=== PATIENT | female | born 1960 | race Two or more races ===

== ENCOUNTER 2016-05-21 17:59 | Emergency (ER) | payer MEDICAID ==
[~2016-05-21] VITALS: Ht 162.6 cm; Wt 72.6 kg
[~2016-05-21 17:59] MED LIST: HYDR-2601 PO; HYDR12.56 PO; LOSA50TA6 PO
[2016-05-21] MEDS ORDERED: SODIUM CHLORIDE 0.9% 1,000 ML IVB ONE (18:40)
[2016-05-21] MEDS ORDERED: ASPirin 81 mg TAB PO ONE (18:45)
[2016-05-21] MEDS ORDERED: LORazepam 2MG/ML-1ML VIAL IV ONE (18:45)
[2016-05-21 19:48] LABS: Basophils # (auto) 0 uL; Basophils % (auto) 0.3 % (0.0-2.0); Eosinophils # (auto) 0 uL; Eosinophils % (auto) 0.1 % (0.0-7.0); Hematocrit 40.7 % (36.0-46.0); Hemoglobin 13.2 g/dL (12.2-16.2); Lymphocytes # (auto) 2.1 uL; Lymphocytes % (auto) 33.9 % (10.0-50.0); Mean Corpuscular Hemoglobin 27.9 pg (28.0-32.0); Mean Corpuscular Hgb Conc. 32.3 g/dL (32.0-36.0); Mean Corpuscular Volume 86.3 fL (80.0-100.0); Mean Platelet Volume 9.1 fL (7.4-10.4); Monocytes # (auto) 0.1 uL; Monocytes % (auto) 1.8 % (0.0-12.0); Neutrophils # (auto) 3.9 uL; Neutrophils % (auto) 63.9 % (37.0-80.0); Platelet Count (auto) 265 10^3/uL (140-450); Red Cell Distribution Width 17.9 % (11.6-16.0); White Blood Cell 6.1 10^3/uL (4.4-10.8)
[2016-05-21 20:03] LABS: Albumin 3.9 g/dL (3.4-5.0); BUN/Creatinine Ratio 17.6; Calcium 8.5 mg/dL (8.5-10.1); Magnesium 2.2 mg/dL (1.6-2.6); Potassium 3.9 mmol/L (3.5-5.1)
[2016-05-21 20:06] LABS: Bilirubin, Total 0.4 mg/dL (0.2-1.0); Total Protein 7.8 g/dL (6.4-8.2)
[2016-05-21 22:45] VITALS: BP 118/64
== END 2016-05-21 22:56 | disposition home or self-care (01) ==
LOC: EDBD 17:59 → ER 17:59
DX: R07.89 Other chest pain (principal); F10.129 Alcohol abuse with intoxication, unspecified; I10 Essential (primary) hypertension; E78.5 Hyperlipidemia, unspecified; Z88.8 Allergy status to other drugs, medicaments and biological substances
CPT/HCPCS: 36415; 71010; 80053; 80320; 83735; 84484; 85025; 85049; 93005; 94761; 96361; 96374; 99285; J2060; J7030

== ENCOUNTER 2017-09-19 19:53 | Inpatient (IN) | payer MEDICAID ==
[~2017-09-19] VITALS: Ht 165.1 cm; Wt 77.4 kg
[2017-09-19] MEDS ORDERED: ONDANSETRON HCL 4 MG/2 ML VIAL IV ONE (20:15)
[2017-09-19] MEDS ORDERED: NALBUPHINE HCL 10 MG/1ml INJECTION IV ONE ×2 (20:15→22:00)
[2017-09-19 20:40] LABS: Basophils # (auto) 0 uL; Basophils % (auto) 0.3 % (0.0-2.0); Eosinophils # (auto) 0 uL; Eosinophils % (auto) 0.4 % (0.0-7.0); Hematocrit 37.3 % (36.0-46.0); Hemoglobin 12.4 g/dL (12.2-16.2); Lymphocytes # (auto) 1.2 uL; Lymphocytes % (auto) 22.3 % (10.0-50.0); Mean Corpuscular Hemoglobin 31.9 pg (28.0-32.0); Mean Corpuscular Hgb Conc. 33.3 g/dL (32.0-36.0); Mean Corpuscular Volume 95.7 fL (80.0-100.0); Monocytes # (auto) 0.2 uL; Monocytes % (auto) 4.4 % (0.0-12.0); Neutrophils # (auto) 4.1 uL; Neutrophils % (auto) 72.6 % (37.0-80.0); Nucleated Red Blood Cells % 0.1 %; Platelet Count (auto) 239 10^3/uL (140-450); Red Cell Distribution Width 15.9 % (11.8-14.3); White Blood Cell 5.6 10^3/uL (4.4-10.8)
[2017-09-19 20:54] LABS: INR 0.9 (0.9-1.15); Partial Thromboplastin Time 24.2 sec (23.78-33.04); Prothrombin Time 9.7 sec (9.27-12.13)
[2017-09-19 20:59] LABS: Alanine Aminotransferase 32 U/L (13-56); Alkaline Phosphatase 81 U/L (45-117); Amylase 101 U/L (25-115); Anion Gap 14 (5-15); Aspartate Aminotransferase 20 U/L (15-37); BUN/Creatinine Ratio 27.1; Bilirubin, Total 0.4 mg/dL (0.2-1.0); Blood Urea Nitrogen 23 mg/dL (7-18); Calcium 8.9 mg/dL (8.5-10.1); Carbon Dioxide 18 mmol/L (21-32); Chloride 113 mmol/L (98-107); GFR African American 89 mL/min; GFR Non-African American 73 mL/min; Glucose 57 mg/dL (74-106); Lipase 299 U/L (73-393); Potassium 3.8 mmol/L (3.5-5.1); Sodium 145 mmol/L (136-145); Total Protein 7.9 g/dL (6.4-8.2)
[2017-09-19] MEDS ORDERED: SODIUM CHLORIDE 0.9% 1,000 ML IV ONE (22:00)
[2017-09-19] MEDS ORDERED: DEXTROSE 50% SYRINGE 50 ML IV ONE (22:05)
[2017-09-19] MEDS ORDERED: DEXTROSE (50%) 50ML SYRG IV ONE (22:15)
[2017-09-19] MEDS ORDERED: MVI in SODIUM CHLORIDE 0.9% 1,010 ML ONE (22:20)
[2017-09-19] MEDS: THIAMINE INJ 100 MG, MULTIPLE VITAMIN 10 ML, FOLIC ACID 1 MG, MAGNESIUM SULF SDV 50% 8 ... IV SCH ×5 (23:14)
[2017-09-20] MEDS ORDERED: ONDANSETRON HCL 4 MG/2 ML VIAL IV ONE (00:15)
[2017-09-20 01:56] LABS: Urine Bacteria NONE SEEN /hpf (None Seen); Urine Blood Negative /uL (Negative); Urine Hyaline Cast FEW /lpf (0 - 2); Urine Mucus FEW (None Seen); Urine Specific Gravity 1.024 (1.001-1.035); Urine WBC 11 /hpf (0 - 5)
[2017-09-20 02:09] LABS: Amphetamine Screen, Urine NEGATIVE (NEGATIVE); Barbiturate Scree,Urine NEGATIVE (NEGATIVE); Benzodiazephine Screen, Urine NEGATIVE (NEGATIVE); Cannabinoid Screen, Urine NEGATIVE (NEGATIVE); Cocaine Screen, Urine NEGATIVE (NEGATIVE); Opiate Scree,Urine NEGATIVE (NEGATIVE); Phencyclidine Screen, Urine NEGATIVE (NEGATIVE)
[2017-09-20] MEDS ORDERED: HYDROcodone-ACET 5/325MG TAB PO ONE (03:15)
[2017-09-20] MEDS ORDERED: TEMAZEPAM 15 MG CAP PO PRN (05:45)
[2017-09-20] MEDS ORDERED: ACETAMINOPHEN 325 MG TAB PO PRN (05:45)
[2017-09-20] MEDS ORDERED: MORPHINE SULFATE 4 MG/ML SYR/VIAL IV PRN (05:45)
[2017-09-20] MEDS ORDERED: NITROGLYCERIN 0.4 MG SL TAB SL PRN (05:45)
[2017-09-20 06:42] LABS: Hematocrit 33.7 % (36.0-46.0); Hemoglobin 11.3 g/dL (12.2-16.2)
[2017-09-20] MEDS: ONDANSETRON HCL 4 MG/2 ML VIAL IV PRN ×3 (07:06→19:55)
[2017-09-20] MEDS: HYDROcodone-ACET 5/325MG TAB PO PRN ×2 (07:56→14:11)
[2017-09-20 09:55] VITALS: BP 145/86
[2017-09-20] MEDS ORDERED: PANTOPRAZOLE 40 MG/10 ML VIAL IV SCH (10:00)
[2017-09-20] MEDS: HCTZ 25 MG TAB PO SCH (11:01)
[2017-09-20] MEDS: LOSARTAN POTASSIUM 50 MG TAB PO SCH (11:01)
[2017-09-20] MEDS ORDERED: THIAMINE INJ 100 MG, MULTIPLE VITAMIN 10 ML, FOLIC ACID 1 MG, MAGNESIUM SULF SDV 50% 8 ... IV SCH ×5 (12:00)
[2017-09-20] MEDS ORDERED: chlordiazePOXIDE HCL 5 MG CAP PO ONE (14:15)
[2017-09-20] MEDS ORDERED: GOLYTELY 4L KIT PO ONE (14:45)
[2017-09-20] MEDS: chlordiazePOXIDE HCL 5 MG CAP PO SCH ×2 (17:09→21:18)
[2017-09-20 17:44] VITALS: BP 143/86
[2017-09-20] MEDS: MORPHINE SULFATE 8mg/ml INJ SDV IV PRN (19:54)
[2017-09-20] MEDS: PANTOPRAZOLE 40 MG/10 ML VIAL IV SCH (21:18)
[2017-09-20 22:00] VITALS: BP 124/90
[2017-09-21 04:36] VITALS: BP 150/88
[2017-09-21] MEDS: ONDANSETRON HCL 4 MG/2 ML VIAL IV PRN ×3 (05:19→20:59)
[2017-09-21] MEDS: MORPHINE SULFATE 8mg/ml INJ SDV IV PRN ×3 (05:21→20:59)
[2017-09-21] MEDS: chlordiazePOXIDE HCL 5 MG CAP PO SCH ×4 (05:27→20:58)
[2017-09-21] MEDS ORDERED: GOLYTELY 4L KIT PO ONE (06:00)
[2017-09-21 06:05] LABS: Basophils # (auto) 0 uL; Basophils % (auto) 0.5 % (0.0-2.0); Eosinophils # (auto) 0.1 uL; Eosinophils % (auto) 1.7 % (0.0-7.0); Hemoglobin 11.4 g/dL (12.2-16.2); Lymphocytes # (auto) 1.2 uL; Lymphocytes % (auto) 33.3 % (10.0-50.0); Mean Corpuscular Hemoglobin 31.6 pg (28.0-32.0); Mean Corpuscular Hgb Conc. 32.7 g/dL (32.0-36.0); Mean Corpuscular Volume 96.7 fL (80.0-100.0); Monocytes # (auto) 0.4 uL; Monocytes % (auto) 10.2 % (0.0-12.0); Neutrophils # (auto) 1.9 uL; Neutrophils % (auto) 54.3 % (37.0-80.0); Nucleated Red Blood Cells % 0.3 %; Platelet Count (auto) 189 10^3/uL (140-450); Red Blood Cells 3.62 10^6/uL (4.0-5.20); Red Cell Distribution Width 15.1 % (11.8-14.3); White Blood Cell 3.5 10^3/uL (4.4-10.8)
[2017-09-21 06:14] LABS: Albumin 3.2 g/dL (3.4-5.0); BUN/Creatinine Ratio 16.2; Calcium 8.6 mg/dL (8.5-10.1); Potassium 3.8 mmol/L (3.5-5.1)
[2017-09-21 06:19] LABS: Bilirubin, Total 1.4 mg/dL (0.2-1.0); Total Protein 6.6 g/dL (6.4-8.2)
[2017-09-21 08:00] VITALS: BP 143/78
[2017-09-21] MEDS ORDERED: SODIUM CHLORIDE LOCK 10 ML ONE (08:23)
[2017-09-21] MEDS ORDERED: diphenhdrAMINE HCL 50 MG/1 ML VL ONE (08:23)
[2017-09-21 09:18] VITALS: BP 143/78
[2017-09-21] MEDS: PANTOPRAZOLE 40 MG/10 ML VIAL IV SCH ×2 (09:32→20:58)
[2017-09-21] MEDS: LOSARTAN POTASSIUM 50 MG TAB PO SCH (09:34)
[2017-09-21] MEDS: HCTZ 25 MG TAB PO SCH (09:35)
[2017-09-21] MEDS ORDERED: LIDOCAINE VISCOUS 2% 15ML UD ONE (13:42)
[2017-09-21] MEDS: MIDAZOLAM HCL 5 MG/ML-1ML VIAL ONE ×3 (14:52→14:59)
[2017-09-21] MEDS: fentaNYL CITRATE 100 MCG/2 ML VL ONE ×2 (14:52→14:56)
[2017-09-21] MEDS ORDERED: MIDAZOLAM HCL 5 MG/ML-1ML VIAL ONE (14:57)
[2017-09-21] MEDS ORDERED: fentaNYL CITRATE 100 MCG/2 ML VL ONE (14:57)
[2017-09-21] MEDS ORDERED: PROPOFOL 10 MG/ML 20 ML IV ONE (15:23)
[2017-09-21 16:59] VITALS: BP 127/95
[2017-09-21] MEDS: THIAMINE INJ 100 MG, MULTIPLE VITAMIN 10 ML, FOLIC ACID 1 MG, MAGNESIUM SULF SDV 50% 8 ... IV SCH ×5 (17:48)
[2017-09-21 22:00] VITALS: BP 143/81
[2017-09-22] MEDS: ONDANSETRON HCL 4 MG/2 ML VIAL IV PRN ×3 (02:46→12:14)
[2017-09-22] MEDS: MORPHINE SULFATE 8mg/ml INJ SDV IV PRN ×3 (02:47→12:14)
[2017-09-22 05:08] VITALS: BP 119/75
[2017-09-22] MEDS: chlordiazePOXIDE HCL 5 MG CAP PO SCH ×2 (05:36→12:10)
[2017-09-22 08:19] VITALS: BP 138/81
[2017-09-22] MEDS: HCTZ 25 MG TAB PO SCH (09:59)
[2017-09-22] MEDS: PANTOPRAZOLE 40 MG/10 ML VIAL IV SCH (09:59)
[2017-09-22] MEDS: LOSARTAN POTASSIUM 50 MG TAB PO SCH (10:00)
[2017-09-22] MEDS: THIAMINE INJ 100 MG, MULTIPLE VITAMIN 10 ML, FOLIC ACID 1 MG, MAGNESIUM SULF SDV 50% 8 ... IV SCH ×5 (12:10)
[2017-09-22 12:37] VITALS: BP 144/95
[2017-09-22 12:45] VITALS: BP 138/81
== END 2017-09-22 14:26 | disposition home or self-care (01) | DRG 775 ==
LOC: ER 19:53 → EDBD 19:53 → TELE 19:54 → TELE-CENTR 09-20 08:35
PROVIDERS: ADMIT Nurse Practitioner; ATTEND Family Medicine
PROC: 0DB68ZX Excision of Stomach, Via Natural or Artificial Opening Endoscopic, Diagnostic (ICD-10-PCS; principal; 2017-09-21 14:38)
PROC: 0DJD8ZZ Inspection of Lower Intestinal Tract, Via Natural or Artificial Opening Endoscopic (ICD-10-PCS; 2017-09-21 14:38)
DX: F10.129 Alcohol abuse with intoxication, unspecified (principal); G92 Toxic encephalopathy; K25.4 Chronic or unspecified gastric ulcer with hemorrhage; K29.61 Other gastritis with bleeding; K29.81 Duodenitis with bleeding; I10 Essential (primary) hypertension; K64.8 Other hemorrhoids; F41.9 Anxiety disorder, unspecified; E44.1 Mild protein-calorie malnutrition; E78.5 Hyperlipidemia, unspecified; K57.30 Diverticulosis of large intestine without perforation or abscess without bleeding; Z82.49 Family history of ischemic heart disease and other diseases of the circulatory system; Z79.899 Other long term (current) drug therapy; Z88.8 Allergy status to other drugs, medicaments and biological substances; Z68.28 Body mass index [BMI] 28.0-28.9, adult
CPT/HCPCS: 36415; 74176; 80053; 80307; 80320; 81001; 82150; 83690; 83880; 84484; 85014; 85018; 85025; 85610; 85730; 86850; 86900; 86901; 93005; 96361; 96365; 96375; C9113; J2250; J2270; J2405; J2704

== ENCOUNTER 2017-11-21 10:41 | Emergency (ER) | payer MEDICAID ==
[~2017-11-21] VITALS: Ht 165.1 cm; Wt 65.8 kg
[2017-11-21 11:18] LABS: Basophils # (auto) 0 uL; Basophils % (auto) 0.6 % (0.0-2.0); Eosinophils # (auto) 0 uL; Eosinophils % (auto) 0.2 % (0.0-7.0); Hematocrit 35.4 % (36.0-46.0); Hemoglobin 11.7 g/dL (12.2-16.2); Lymphocytes # (auto) 0.5 uL; Lymphocytes % (auto) 10.3 % (10.0-50.0); Mean Corpuscular Hemoglobin 29.6 pg (28.0-32.0); Mean Corpuscular Hgb Conc. 32.9 g/dL (32.0-36.0); Monocytes # (auto) 0.1 uL; Monocytes % (auto) 2.6 % (0.0-12.0); Neutrophils # (auto) 4.2 uL; Neutrophils % (auto) 86.3 % (37.0-80.0); Platelet Count (auto) 125 10^3/uL (140-450); Red Blood Cells 3.94 10^6/uL (4.0-5.20); Red Cell Distribution Width 14.8 % (11.8-14.3); White Blood Cell 4.8 10^3/uL (4.4-10.8)
[2017-11-21 11:45] LABS: Alanine Aminotransferase 72 U/L (13-56); Albumin 3.8 g/dL (3.4-5.0); Alkaline Phosphatase 94 U/L (45-117); Anion Gap 14 (5-15); Aspartate Aminotransferase 89 U/L (15-37); BUN/Creatinine Ratio 32.8; Bilirubin, Total 1.5 mg/dL (0.2-1.0); Blood Urea Nitrogen 21 mg/dL (7-18); Calcium 8.3 mg/dL (8.5-10.1); Carbon Dioxide 21 mmol/L (21-32); Chloride 102 mmol/L (98-107); GFR African American 123 mL/min; GFR Non-African American 101 mL/min; Glucose 106 mg/dL (74-106); Potassium 3.4 mmol/L (3.5-5.1); Sodium 137 mmol/L (136-145); Total Protein 7.7 g/dL (6.4-8.2)
[2017-11-21 13:24] LABS: Urine Bacteria NONE SEEN /hpf (None Seen); Urine Blood TRACE /uL (Negative); Urine Mucus FEW (None Seen); Urine Specific Gravity 1.035 (1.001-1.035); Urine WBC 5 /hpf (0 - 5)
[2017-11-21] MEDS ORDERED: SODIUM CHLORIDE 0.9% 1,000 ML IVB ONE (13:25)
[2017-11-21] MEDS ORDERED: DONNATAL 5ml ORAL Elix (BELLADONNA ALK-PHENOBARB) PO ONE (13:30)
[2017-11-21] MEDS ORDERED: PROMETHAZINE HCL 25 MG/ML 1ML IV PRN (13:30)
[2017-11-21] MEDS ORDERED: FAMOTIDINE 20 MG TAB PO ONE (13:30)
[2017-11-21] MEDS ORDERED: LORazepam 2MG/ML-1ML VIAL IV ONE (13:30)
[2017-11-21] MEDS ORDERED: ALUM & MAG HYDROX-SIMETH LIQ(MAALOX) 30 ML PO ONE (13:30)
[2017-11-21 13:49] LABS: Magnesium 1.9 mg/dL (1.6-2.6)
[2017-11-21 13:53] LABS: Amphetamine Screen, Urine NEGATIVE (NEGATIVE); Barbiturate Scree,Urine NEGATIVE (NEGATIVE); Benzodiazephine Screen, Urine NEGATIVE (NEGATIVE); Cannabinoid Screen, Urine NEGATIVE (NEGATIVE); Cocaine Screen, Urine NEGATIVE (NEGATIVE); Opiate Scree,Urine POSITIVE (NEGATIVE); Phencyclidine Screen, Urine NEGATIVE (NEGATIVE)
[2017-11-21 14:00] LABS: INR 0.89 (0.9-1.15); Prothrombin Time 9.6 sec (9.27-12.13)
[2017-11-21] MEDS ORDERED: CLON0.1T PO (15:09)
[2017-11-21 15:51] VITALS: BP 140/92
[2017-11-21] MEDS ORDERED: cefTRIAXone 1GM/10ml IVPUSH 10 ML IV ONE (17:15)
== END 2017-11-21 18:03 | disposition home or self-care (01) ==
LOC: EDBD 10:41 → ER 10:41
DX: F41.1 Generalized anxiety disorder (principal); F10.239 Alcohol dependence with withdrawal, unspecified; K29.20 Alcoholic gastritis without bleeding; L25.8 Unspecified contact dermatitis due to other agents; N39.0 Urinary tract infection, site not specified; R74.8 Abnormal levels of other serum enzymes; Y90.9 Presence of alcohol in blood, level not specified
CPT/HCPCS: 36415; 80053; 80307; 81001; 83690; 83735; 84443; 84484; 85025; 85610; 85730; 93005; 96361; 96374; 96375; 99285; J0696; J2060; J7030